=== PATIENT | female | born 1985 | race Asian ===

== ENCOUNTER → 2024-01-01 | Outpatient (CLI) | payer BC ==
[2024-01-01 12:59] LABS: BASOPHILS % 0.4 % (0.0-2.0); EOSINOPHILS % 2.4 % (0.0-5.0); HEMATOCRIT. 42.4 % (36.0-48.0); HEMOGLOBIN. 14.7 g/dL (12.0-16.0); LYMPHOCYTES % 22.5 % (20.0-50.0); MEAN CORPUSCULAR HEMOGLOBIN 31.6 pg (28.0-32.0); MEAN CORPUSCULAR HGB CONC 34.6 g/dL (31.0-37.0); MEAN CORPUSCULAR VOLUME 91.4 fL (81.0-99.0); MEAN PLATELET VOLUME 8.2 fl (7.4-10.4); NEUTROPHILS % 67.7 % (40.0-76.0); PLATELET 246 x1000/uL (130-400); RED BLOOD CELL COUNT 4.64 mill/uL (4.2-5.4); WHITE BLOOD COUNT 5.6 x1000/uL (4.5-11.0)
[2024-01-01 13:12] LABS: CARBON DIOXIDE 26 mEq/L (21-32); CHLORIDE 104 mEq/L (98-107); POTASSIUM 3.5 mEq/L (3.5-5.1); SODIUM 137 mEq/L (136-145)
[2024-01-01 13:13] LABS: CALCIUM 9.6 mg/dL (8.7-10.4)
[2024-01-01 13:17] LABS: CREATININE 0.7 mg/dL (0.6-1.0); GLUCOSE 89 mg/dL (70-105)
[2024-01-01 13:18] LABS: LDL CHOLESTEROL 93 mg/dL (5-100); TRIGLYCERIDE 95 mg/dL (0-150); UREA NITROGEN BLOOD 7 mg/dL (9-23)
[2024-01-01 13:19] LABS: ALANINE AMINOTRANSFERASE < 7 IU/L (10-49); ALBUMIN 4.8 g/dL (3.2-4.8); ASPARTATE AMINOTRANSFERASE 24 IU/L (<34); CHOLESTEROL 170 mg/dL (<200)
[2024-01-01 13:20] LABS: BILIRUBIN DIRECT 0.1 mg/dL (<=3.0); BILIRUBIN TOTAL 0.5 mg/dL (0.1-1.0); HDL CHOLESTEROL 67 mg/dL (>65)
[2024-01-01 13:21] LABS: HEPATITIS B SURFACE AB > 1000.0 mIU/mL (<10)
[2024-01-01 13:35] LABS: CLARITY URINE CLEAR (CLEAR); COLOR URINE YELLOW (YELLOW); GLUCOSE URINE NEGATIVE (NEGATIVE); KETONES URINE NEGATIVE (NEGATIVE); LEUKOCYTE ESTERASE URINE NEGATIVE (NEGATIVE); NITRITE URINE NEGATIVE (NEGATIVE); OCCULT BLOOD URINE NEGATIVE (NEGATIVE); PROTEIN URINE NEGATIVE (NEGATIVE); SPECIFIC GRAVITY URINE 1.014 (1.005-1.030); UROBILINOGEN URINE 0.2 E.U./dL (0.2-1.0)
[2024-01-01 13:55] LABS: HEPATITIS C AB NON REACTIVE (Neg) (Negative)
[2024-01-01 13:59] LABS: PROTEIN TOTAL 8.2 g/dL (6.0-8.3)
[2024-01-01 14:01] LABS: THYROID STIMULATING HORMONE 1.28 uIU/mL (0.55-4.78)
== END | disposition home or self-care (01) ==
LOC: US 12:18
PROVIDERS: ATTEND Internal Medicine
DX: N83.292 Other ovarian cyst, left side (principal); K29.70 Gastritis, unspecified, without bleeding; R10.9 Unspecified abdominal pain; R10.2 Pelvic and perineal pain; R19.00 Intra-abdominal and pelvic swelling, mass and lump, unspecified site
CPT/HCPCS: 36415; 76700; 76830; 76856; 80053; 80061; 80076; 81003; 83036; 84443; 85025; 86705; 86706; 86765

== ENCOUNTER → 2024-01-08 | Outpatient (CLI) | payer BC ==
[2024-01-08 13:43] LABS: B-HCG QUANTITATIVE 4 mIU/mL (<3); LACTATE DEHYDROGENASE 160 IU/L (120-246)
[2024-01-10 06:08] LABS: CANCER ANTIGEN 125 47.6 U/mL (0.0-38.1); CARCINOEMBRYONIC AG - SEND OUT 1.2 ng/mL (0.0-4.7)
[2024-01-10 09:07] LABS: ALPHA FETOPROTEIN TUMOR MARKER 2.4 ng/mL (0.0-6.4)
[2024-01-10 13:06] LABS: HUMAN EPIDIDYMIS PROTEIN 4 50.3 pmol/L (0.0-61.2)
[2024-01-16 09:56] LABS: *INHIBIN A 5.5 pg/mL
== END | disposition home or self-care (01) ==
LOC: LAB 12:43
PROVIDERS: ATTEND Obstetrics & Gynecology Obstetrics
DX: Z32.00 Encounter for pregnancy test, result unknown (principal); Z3A.00 Weeks of gestation of pregnancy not specified
CPT/HCPCS: 36415; 82105; 82378; 83520; 83615; 84702; 86301; 86304; 86305; 86336